=== PATIENT | female | born 1985 | race Caucasian/White ===

== ENCOUNTER 2024-05-15 12:43 | Emergency (ER) | payer OTHER, SELFPAY ==
[2024-05-15 12:51] VITALS: BP 148/88
[2024-05-15 14:00] VITALS: BMI 32.1
[2024-05-15 14:25] LABS: % Basophils 0.4 % (0-2); % Eosinophils 1.3 % (0-6); % Immature Granulocytes 0.1 % (0-0.5); % Lymphocytes 29.4 % (20.5-51.1); % Monocytes 5.3 % (1.7-9.3); % Neutrophils 63.5 % (42.2-75.2); Absolute Eosinophils 0.1 10^3/uL (0-0.7); Absolute Lymphocytes 2.2 10^3/uL (1.2-3.4); Absolute Monocytes 0.4 10^3/uL (0.1-0.6); Absolute Neutrophils 4.7 10^3/uL (1.4-6.5); Hematocrit 35.8 % (37.0-47.0); Hemoglobin 12.4 g/dL (12.0-16.0); Mean Corp Hgb Conc. 34.6 g/dL (33.0-37.0); Mean Corpuscular Hgb 27.6 pg (27.0-31.0); Mean Corpuscular Volume 79.6 fL (81.0-99.0); Mean Platelet Volume 8.8 fL (7.4-10.4); Nucleated Red Blood Cells % 0 %; Platelet Count 232 10^3/uL (130-400); Red Cell Dist. Width 12.7 % (11.5-14.5); White Blood Cell Count 7.5 10^3/uL (4.8-10.8)
--- NOTE | 2024-05-15 14:35 | ED.GENMED ---
History of Present Illness
General
Chief Complaint: Dizziness
Source: patient
Exam Limitations: none
Time Seen by Provider: 05/15/24 14:08
Nursing documentation reviewed up to this point in time: agreed with
History of Present Illness
History of Present Illness:
This is a 38-year-old female with no past medical history who presents emergency department today with a room spinning sensation for the past 2 days. Patient reports that she first noticed this upon wakening yesterday. Patient reports that when
she woke up, she opening her eyes and felt a sensation that the room is spinning and felt that she had associated nausea as well but no vomiting. Patient states that she felt very dizzy. She is never had anything like this before. She reports
that this lasted around an hour and when she started to get up and walk around, she felt better. Patient states that she went back to bed and was able to fall asleep for a few hours and felt her normal self later in the day. Patient reports that
she had been back to sleep tonight and notes that her symptoms returned upon awakening this morning again. She had the same episode of dizziness when laying flat and laying down. Patient denies any trauma to the head or neck. Patient denies any
syncopal episodes. Patient denies any visual changes. Patient denies any fevers or chills. Patient denies any cough or cold-like symptoms, denies any upper respiratory symptoms. Patient denies any chest pain or shortness of breath. Patient denies
any tinnitus.
Past History
Past History
ED Past Medical History: None
ED Past Surgical History: None
Social History
Tobacco: Non-smoker
Personal:
Living: with family
Employment: Employed
Review of Systems
Review of Systems
All Other Systems: ROS reviewed and negative except as documented in HPI and ROS
Phy Exam
Physical Exam
Physical Exam:
General: Patient is well appearing and in no acute distress; non-toxic
Skin: Warm and dry, no rashes or lesions
Head: Normocephalic, atraumatic
Eyes: Sclera non-icteric. EOMs intact. No nystagmus
Cardiac: Regular rate and rhythm, no murmurs
Peripheral Vascular: No lower extremity swelling or edema
Pulm: Normal respiratory effort, no wheezes, rales, rhonchi
Neuro: CN II-XII intact, no focal neurologic deficits. Normal finger-nose, [id number] testing. Normal gait.
Psychiatric: Appropriate mood and affect.
Course
Orders/Labs/Results
Orders:
Orders
05/15/24 12:56
ECG [Electrocardiogram (*1)] Urgent
Reason for Study: Vertigo / Dizzy
05/15/24 12:57
EKG- Treatment ONCE
05/15/24 14:07
IV [INT (Intravenous Needle Therapy)] As Directed
05/15/24 14:09
BMP [Basic Metabolic Panel] Stat
Complete Blood Count/With Diff Stat
05/15/24 14:52
CT Head W/o Iv Contrast Urgent
Comment:
Reason For Exam: morning headaches, dizziness
0.9% Sodium Chloride 1000 ml [Nss] 1,000 ml IV BOLUS
05/15/24 16:10
Meclizine [Antivert] 25 mg PO NOW STA
Ondansetron Injectable [Zofran] 4 mg IV NOW STA
05/15/24 16:51
Orthostatic VS- Treatment ONCE
Abnormal Lab Results
05/15/24
14:09
Hct 35.8 L %
(37.0-47.0)
MCV 79.6 L fL
(81.0-99.0)
05/15/24 14:09
05/15/24 14:09
Vital Signs
Initial and Last Documented VS:
Initial Vital Signs
Temp Pulse Resp BP Pulse Ox
98.3 F 84 18 148/88 99
05/15/24 12:51 05/15/24 12:51 05/15/24 12:51 05/15/24 12:51 05/15/24 12:51
Last Documented Vital Signs
Temp Pulse Resp BP Pulse Ox
98.4 F 75 16 118/85 100
05/15/24 17:00 05/15/24 17:00 05/15/24 17:00 05/15/24 17:00 05/15/24 17:00
MDM/Problems Addressed
Differential Diagnosis Includes:
Differentials include BPPV, M�ni�re's disease, dysrhythmia, CVA, electrolyte derangement,
MDM/Problems Addressed:
38-year-old female presents emergency department today with concerns of dizziness upon wakening for the past 2 days. Patient reports that when she lies flat, she gets a the room is spinning and she becomes nauseated. Currently, patient is not
lying flat, she feels well and is asymptomatic. On exam I am able to reproduce her symptoms when she lies supine. She has no nystagmus. She has no focal neurologic deficits.. Unremarkable. She had CAT scan of the head which did show arachnoid
cyst otherwise no acute intracranial abnormality. Patient was given a dose of meclizine and some Zofran for nausea as well as IV fluids. When patient was lied supine again, she did not feel the symptoms she felt earlier. Considering patient's
symptoms are very positional, do respond to meclizine, and she has no risk factors for posterior stroke, suspect BPPV. Meclizine sent to patient's pharmacy. Recommended follow-up PCP. Patient stable for discharge.
*Pulse Oximetry
Patient hypoxic: no
*Critical Care Note
Total Time (30-74mins, 75-104mins- exclusive of procedures): Not Applicable
ED Attending Note
-
Portions of this chart may have been created with voice recognition software.� Occasional wrong word or��sound alike� substitutions may have occurred due to the inherent limitations of voice recognition software.
Discharge Plan
Departure
Patient Disposition: Home (Routine Discharge)
Date of Disposition: 05/15/24
Time of Disposition: 17:36
Patient with high blood pressure during this ER visit?: Yes
Condition: Good
Discharge Problem:
Vertigo
Instructions: Vertigo (a Type of Dizziness) (DC), BLOOD PRESSURE
Prescriptions:
New
meclizine 12.5 mg tablet
12.5 mg PO TID PRN (Reason: dizziness) Qty: 10 0RF
ondansetron HCl 4 mg tablet
4 mg PO Q6H PRN (Reason: nausea and vomiting) Qty: 8 0RF
Referrals:
Edis Garcia MD [Family Provider] -
Activity Restrictions/Additional Instructions:
Your CBC and CMP blood work is unremarkable. Your CT showed no acute intracranial abnormality but did show a probable arachnoid cyst---this is unlikely to be the cause of your symptoms however confirmation with a nonurgent MRI is recommended.
Your EKG showed normal sinus rhythm with no significant irregularities.
meclizine (Antivert) and ondansetron (Zofran) has been sent to your pharmacy
PLEASE RETURN TO THE EMERGENCY DEPARTMENT SHOULD YOU DEVELOP ACUTE WORSENING OF YOUR SYMPTOMS, VISUAL LOSS, HEADACHE, INTRACTABLE NAUSEA OR VOMITING, NECK PAIN, INABILITY AMBULATE, WEAKNESS ONE-SIDED BODY VERSUS OTHER, NUMBNESS OR TINGLING, FEVERS
OR CHILLS, CHEST PAIN, SHORTNESS OF BREATH, FAINTING SPELLS, OR ANY OTHER SIGNS OR SYMPTOMS WORRISOME TO YOU.
Interventions
Interventions:
*Risk Screen - Suicide Last Done: 05/15/24 12:52
*General Assessment Last Done: 05/15/24 12:52
*Neglect/Abuse Screening Last Done: 05/15/24 12:52
*ED- Fall Risk Assessment Last Done: 05/15/24 13:55
*ED COVID-19 Vaccine History Last Done: 05/15/24 13:55
*Nursing Disposition Last Done: 05/15/24 17:55
ED- Neurological Assessment Last Done: 05/15/24 13:57
ED- Cardiac Assessment Last Done: 05/15/24 13:58
ED Swallowing Screen Last Done: 05/15/24 13:59
Discharge Date and Time
Discharge Date/Time: 05/15/24 17:57
Print Language: ARABIC
[2024-05-15 14:38] LABS: Blood Urea Nitrogen 10 mg/dl (7-17); Calcium 9.4 mg/dl (8.4-10.2); Carbon Dioxide 27 mmol/L (22-30); Chloride 106 mmol/L (98-107); Estimated Creatinine Clearance 107 ml/min; Glucose 94 mg/dl (70-99); Potassium 4.2 mmol/L (3.5-5.1); Sodium 141 mmol/L (135-145); eGFR > 60.00
[2024-05-15] MEDS: NSS 1000 IV (14:55)
[2024-05-15 14:56] VITALS: BP 128/82
[2024-05-15] MEDS: ANTIVERT 25 MG PO (16:31)
[2024-05-15] MEDS: ZOFRAN 4 MG IV (16:32)
[2024-05-15 17:00] VITALS: BP 118/85
[2024-05-15 17:01] VITALS: BP 118/74; BP 137/85; BP 139/74; PULSE 60; PULSE 63; PULSE 64
== END 2024-05-15 17:57 | disposition home or self-care (01) ==
LOC: EMR 12:43
PROVIDERS: EMERGENCY PHYSICIAN Student in an Organized Health Care Education/Training Program; FAMILY PHYSICIAN Family Medicine
DX: R42 Dizziness and giddiness (principal); R11.0 Nausea
CPT/HCPCS: 99284; 96374; 96361; 70450; 80048; 85025; 93005